=== PATIENT | male | born 1940 | race Caucasian/White ===

== ENCOUNTER → 2017-02-27 | Outpatient (CLI) | payer OTHER ==
[~2017-02-27] MED LIST: ASPI81TA28 PO; ATOR-22 PO; CALC600T9 PO; CLOP1TAB5 PO; LEVO200T6 PO; NEXAVAR PO; NYST100098 TOP; OXYC-57 PO
[2017-02-27 18:09] LABS: BASO % 0.3 %; BASO ABS # 0.02 K/uL (0-0.2); EOS % 1.6 %; HEMATOCRIT 30.1 % (42-52); IG% 0.7 %; LYMPH ABS # 0.81 K/uL (1.2-3.4); MEAN CELL VOLUME 90.4 fL (80-100); MEAN CORPUSCULAR HEMOGLOBIN 29.4 pg (25-34); MEAN CORPUSCULAR HGB CONC 32.6 g/dl (32-36); MEAN PLATELET VOLUME 8.7 fL (7.4-10.4); NEUT % 73.4 %; PLATELET COUNT 215 K/uL (130-400); RED BLOOD COUNT 3.33 M/uL (4.7-6.1)
[2017-02-27 19:16] LABS: ANISOCYTOSIS PRESENT; COMPLETE YES; POLYCHROMASIA 1+
== END | disposition home or self-care (01) ==
LOC: C.LABMFLN 12:29
PROVIDERS: ATTEND Family Medicine
DX: D63.8 Anemia in other chronic diseases classified elsewhere (principal)